=== PATIENT | female | born 1965 | race Two or more races ===

== ENCOUNTER 2017-10-14 10:02 | Emergency (ER) | payer MEDICAID ==
[~2017-10-14] VITALS: Ht 165.1 cm; Wt 86.2 kg
[2017-10-14] MEDS ORDERED: LISINOPRIL5 MG ORAL (10:05)
[2017-10-14 10:08] VITALS: BP 154/71
[2017-10-14] MEDS ORDERED: Methocarbamol 750mg tab ORAL ONE (10:15)
[2017-10-14] MEDS ORDERED: Ketorolac 30mg Inj IM ONE (10:15)
--- NOTE | 2017-10-14 10:41 | Emergency Room Report ---
History of Present Illness General Chief Complaint: Pain Source: Patient, EMS Present Illness HPI 51-year-old female presents ED for evaluation. Brought in by EMS complaining of back pain. Notes pain to left upper back. Woke up this morning with the pain. Denies any recent trauma. Pain is throbbing, 9 out of 10, nonradiating. Denies chest pain or shortness of breath. Denies abdominal pain nausea or vomiting. Denies fevers or chills. No other aggravating relieving factors. Denies any other associated symptoms Allergies: Coded Allergies: No Known Allergies (Unverified , 10/14/17) Patient History Past Medical History: HTN Pertinent Family History: none Social History: Denies: smoking, alcohol use, drug use Now: No Immunizations: UTD Reviewed Nursing Documentation: PMH: Agreed; PSxH: Agreed Nursing Documentation-PMH Past Medical History: No History, Except For Hx Hypertension: Yes Review of Systems All Other Systems: negative except mentioned in HPI Physical Exam Vital Signs Date Time Temp Pulse Resp B/P (MAP) Pulse Ox O2 Delivery O2 Flow Rate FiO2 10/14/17 10:00 98.4 61 18 154/71 99 Room Air 98.4 Sp02 EP Interpretation: reviewed, normal General Appearance: no apparent distress, alert, GCS 15, non-toxic Head: normocephalic, atraumatic Eyes: bilateral eye normal inspection, bilateral eye PERRL ENT: hearing grossly normal, normal pharynx, no angioedema, normal voice Neck: full range of motion, supple/symm/no masses Respiratory: chest non-tender, lungs clear, normal breath sounds, speaking full sentences Cardiovascular #1: regular rate, rhythm, no edema Cardiovascular #2: 2+ carotid (R), 2+ carotid (L), 2+ radial (R), 2+ radial (L) , 2+ dorsalis pedis (R), 2+ dorsalis pedis (L) Gastrointestinal: normal bowel sounds, non tender, soft, non-distended, no guarding, no rebound Rectal: deferred Genitourinary: normal inspection, no CVA tenderness Musculoskeletal: gait/station normal, normal range of motion, tender - paraspinal thoracic TTP Neurologic: alert, oriented x3, responsive, motor strength/tone normal, sensory intact, speech normal Psychiatric: judgement/insight normal, memory normal, mood/affect normal, no suicidal/homicidal ideation Reflexes: 3+ bicep (R), 3+ bicep (L), 3+ tricep (R), 3+ tricep (L), 3+ knee (R) , 3+ knee (L) Skin: normal color, no rash, warm/dry, well hydrated Lymphatic: no adenopathy Medical Decision Making Diagnostic Impression: Primary Impression: Back pain Qualified Codes: M54.6 - Pain in thoracic spine ER Course Hospital Course 51-year-old female presents ED complaining of upper back pain. No evidence of trauma Differential diagnoses include: pyelonephritis, kidney stone, muscle strain, Tspine fracture Clinical course Patient placed on stretcher. After initial history, physical exam reveals a middle-aged female in no acute distress. There is no T-spine tenderness. There is paraspinal thoracic reproducible pain. No rib tenderness. No chest wall tenderness. No flank pain. I ordered toradol, robaxin, lidoderm for pain. Upon reassessment patient states pain has improved. Discussed findings with the patient. Patient safe for discharge with close outpatient follow-up Diagnosis - back pain Stable and discharged to home with prescription for motrin, robaxin, lidoderm. Followup with PMD. Return to ED if symptoms recur or worsen Last Vital Signs Date Time Temp Pulse Resp B/P (MAP) Pulse Ox O2 Delivery O2 Flow Rate FiO2 10/14/17 10:19 98.4 10/14/17 10:08 61 18 154/71 99 Room Air Status: improved Disposition: HOME, SELF-CARE Condition: Stable Scripts Lidocaine (Lidoderm) 1 Each Adh..patch 1 PATCH TOPIC DAILY, #7 PATCH 0 Refills Patch(es) may remain in place for up to 12 hours in any 24-hour period. Prov: Timmy Kaye MD 10/14/17 Methocarbamol* (ROBAXIN-750*) 750 Mg Tablet 750 MG PO TID, #21 TAB 0 Refills Prov: Timmy Kaye MD 10/14/17 Ibuprofen* (MOTRIN*) 600 Mg Tablet 600 MG ORAL Q8H PRN for For Pain, #30 TAB 0 Refills Prov: Timmy Kaye MD 10/14/17 Referrals: NOT CHOSEN IPA/,REFERRING (PCP) Timmy Kaye MD Oct 14, 2017 10:41
[2017-10-14] MEDS ORDERED: ROBAXIN-750750 MG PO (11:00)
[2017-10-14] MEDS ORDERED: LIDODERM700 M1 TOPIC (11:00)
[2017-10-14] MEDS ORDERED: IBUPROFEN600 MG ORAL (11:00)
[2017-10-14 11:12] VITALS: BP 154/71
== END 2017-10-14 11:12 | disposition home or self-care (01) ==
LOC: EDBD 10:02 → EMR 10:15
DX: M54.6 Pain in thoracic spine (principal); I10 Essential (primary) hypertension
CPT/HCPCS: 96372; 99283; J1885